=== PATIENT | male | born 1960 | race Caucasian/White ===

== ENCOUNTER 2016-10-13 10:35 | Inpatient (IN) | payer OTHER ==
[~2016-10-13] VITALS: Ht 177.8 cm; Wt 96.8 kg
[2016-10-13 12:31] LABS: BUN/CREATININE RATIO 14 (0-10)
[2016-10-13 12:37] LABS: HEMOGLOBIN 13.5 gm/dl (14.0-17.5); RED BLOOD COUNT 4.33 M/UL (4.20-5.50); WHITE BLOOD COUNT 25.9 K/UL (4.5-11.0)
[2016-10-13] MEDS ORDERED: LIPITOR TAB 2020 MG PO (20:42)
[2016-10-13] MEDS ORDERED: ASPIRIN325 MG PO (20:42)
[2016-10-13] MEDS ORDERED: ACCUPRIL 10 MG10 MG PO (20:44)
[2016-10-13] MEDS ORDERED: ISOSORBIDE MONO30 MG PO (20:44)
[2016-10-13] MEDS ORDERED: METOPROLOL TART25 MG PO (20:44)
[2016-10-14 04:44] LABS: HEMOGLOBIN 12.5 gm/dl (14.0-17.5); RED BLOOD COUNT 3.97 M/UL (4.20-5.50)
[2016-10-14 05:01] LABS: BUN/CREATININE RATIO 10 (0-10)
[2016-10-15 04:48] LABS: HEMOGLOBIN 12.1 gm/dl (14.0-17.5); RED BLOOD COUNT 3.95 M/UL (4.20-5.50)
[2016-10-15 04:49] LABS: WHITE BLOOD COUNT 13.6 K/UL (4.5-11.0)
[2016-10-15 05:12] LABS: BUN/CREATININE RATIO 10 (0-10)
[2016-10-16 05:49] LABS: HEMOGLOBIN 12.4 gm/dl (14.0-17.5); RED BLOOD COUNT 3.98 M/UL (4.20-5.50); WHITE BLOOD COUNT 12.5 K/UL (4.5-11.0)
[2016-10-16 06:02] LABS: BUN/CREATININE RATIO 13 (0-10)
[2016-10-17] MEDS ORDERED: HABITROL 21 MG P1 EA TD (11:26)
[2016-10-17] MEDS ORDERED: LORCET PLUS 7.1 EACH PO (11:28)
[2016-10-17] MEDS ORDERED: VIBRAMYCIN100 MG PO (11:29)
== END 2016-10-17 13:45 | disposition home or self-care (01) | DRG 854 ==
LOC: ER1 10:35 → ZEROF 13:15 → MED SURG 4 14:24
PROVIDERS: Emergency Medicine; Physician Assistant; Surgery; ADMIT Internal Medicine
PROC: 0J990ZZ Drainage of Buttock Subcutaneous Tissue and Fascia, Open Approach (ICD-10-PCS; principal; 2016-10-14 13:15)
DX: A41.9 Sepsis, unspecified organism (principal); L02.31 Cutaneous abscess of buttock; E87.2 Acidosis; E87.1 Hypo-osmolality and hyponatremia; I10 Essential (primary) hypertension; E78.5 Hyperlipidemia, unspecified; F17.210 Nicotine dependence, cigarettes, uncomplicated; Z86.14 Personal history of Methicillin resistant Staphylococcus aureus infection; Z79.82 Long term (current) use of aspirin; Z88.6 Allergy status to analgesic agent; Z79.899 Other long term (current) drug therapy; Z63.5 Disruption of family by separation and divorce; Z82.49 Family history of ischemic heart disease and other diseases of the circulatory system; Z80.3 Family history of malignant neoplasm of breast; Z88.5 Allergy status to narcotic agent; Z88.8 Allergy status to other drugs, medicaments and biological substances
CPT/HCPCS: 10061; 36415; 80048; 80053; 80202; 83605; 83735; 85025; 85027; 87040; 87070; 87205; 90471; 90715; 93005; 96361; 96374; 96375; 99283; 99284; J1335; J2250; J2270; J2405; J3010; J3370; J7030; J7050; J7070; J7120

== ENCOUNTER → 2016-10-18 | Outpatient (CLI) | payer OTHER ==
[~2016-10-18] MED LIST: ACCUPRIL 10 MG10 MG PO; ASPIRIN325 MG PO; HABITROL 21 MG P1 EA TD; ISOSORBIDE MONO30 MG PO; LIPITOR TAB 2020 MG PO; LORCET PLUS 7.1 EACH PO; METOPROLOL TART25 MG PO; VIBRAMYCIN100 MG PO
== END ==
LOC: OPSV 14:35
DX: L02.31 Cutaneous abscess of buttock (principal)
CPT/HCPCS: G0463

== ENCOUNTER → 2016-10-19 | Outpatient (CLI) | payer OTHER | LOC: OPSV 14:29 | DX: L02.31 Cutaneous abscess of buttock (principal) | CPT/HCPCS: G0463 ==

== ENCOUNTER → 2016-10-20 | Outpatient (CLI) | payer OTHER | LOC: OPSV 14:18 | DX: L02.31 Cutaneous abscess of buttock (principal) | CPT/HCPCS: G0463 ==

== ENCOUNTER → 2016-10-21 | Outpatient (CLI) | payer OTHER | LOC: OPSV 14:04 | DX: L02.31 Cutaneous abscess of buttock (principal) | CPT/HCPCS: G0463 ==

== ENCOUNTER → 2016-10-22 | Outpatient (CLI) | payer OTHER | LOC: OPSV 14:11 | DX: L02.31 Cutaneous abscess of buttock (principal) | CPT/HCPCS: G0463 ==

== ENCOUNTER → 2016-10-23 | Outpatient (CLI) | payer OTHER | LOC: OPSV 08:30 | DX: L02.31 Cutaneous abscess of buttock (principal) | CPT/HCPCS: G0463 ==

== ENCOUNTER → 2016-10-24 | Outpatient (CLI) | payer OTHER | LOC: OPSV 08:44 | DX: L02.31 Cutaneous abscess of buttock (principal) | CPT/HCPCS: G0463 ==

== ENCOUNTER → 2016-10-25 | Outpatient (CLI) | payer OTHER | LOC: OPSV 09:09 | DX: L02.31 Cutaneous abscess of buttock (principal) | CPT/HCPCS: G0463 ==

== ENCOUNTER → 2016-10-27 | Outpatient (CLI) | payer OTHER | LOC: OPSV 13:54 | DX: L02.31 Cutaneous abscess of buttock (principal) | CPT/HCPCS: G0463 ==

== ENCOUNTER → 2016-10-28 | Outpatient (CLI) | payer OTHER | LOC: OPSV 13:54 | DX: L02.31 Cutaneous abscess of buttock (principal) | CPT/HCPCS: G0463 ==

== ENCOUNTER → 2016-10-29 | Outpatient (CLI) | payer OTHER | LOC: OPSV 13:57 | DX: L02.31 Cutaneous abscess of buttock (principal) | CPT/HCPCS: G0463 ==

== ENCOUNTER → 2016-10-30 | Outpatient (CLI) | payer OTHER | LOC: OPSV 09:00 | DX: L02.31 Cutaneous abscess of buttock (principal) | CPT/HCPCS: G0463 ==

== ENCOUNTER → 2016-10-31 | Outpatient (CLI) | payer OTHER | LOC: OPSV 08:42 | DX: L02.31 Cutaneous abscess of buttock (principal) | CPT/HCPCS: G0463 ==

== ENCOUNTER → 2016-11-01 | Outpatient (CLI) | payer OTHER | LOC: OPSV 14:17 | DX: L02.31 Cutaneous abscess of buttock (principal) | CPT/HCPCS: G0463 ==

== ENCOUNTER → 2016-11-02 | Outpatient (CLI) | payer OTHER | LOC: OPSV 12:59 | DX: L02.31 Cutaneous abscess of buttock (principal) | CPT/HCPCS: G0463 ==

== ENCOUNTER → 2016-11-03 | Outpatient (CLI) | payer OTHER | LOC: OPSV 13:59 | DX: L02.31 Cutaneous abscess of buttock (principal) | CPT/HCPCS: G0463 ==

== ENCOUNTER → 2016-11-04 | Outpatient (CLI) | payer OTHER | LOC: OPSV 13:46 | DX: L02.31 Cutaneous abscess of buttock (principal) | CPT/HCPCS: G0463 ==

== ENCOUNTER → 2016-11-05 | Outpatient (CLI) | payer OTHER | LOC: OPSV 13:49 | DX: L02.31 Cutaneous abscess of buttock (principal) | CPT/HCPCS: G0463 ==

== ENCOUNTER → 2016-11-06 | Outpatient (CLI) | payer OTHER | LOC: OPSV 08:30 | DX: L02.31 Cutaneous abscess of buttock (principal) | CPT/HCPCS: G0463 ==

== ENCOUNTER → 2016-11-07 | Outpatient (CLI) | payer OTHER | LOC: OPSV 07:36 | DX: L02.31 Cutaneous abscess of buttock (principal) | CPT/HCPCS: G0463 ==

== ENCOUNTER → 2016-11-08 | Outpatient (CLI) | payer OTHER | LOC: OPSV 14:00 | DX: L02.31 Cutaneous abscess of buttock (principal) | CPT/HCPCS: G0463 ==

== ENCOUNTER → 2016-11-09 | Outpatient (CLI) | payer OTHER | LOC: OPSV 13:58 | DX: L02.31 Cutaneous abscess of buttock (principal) | CPT/HCPCS: G0463 ==

== ENCOUNTER 2017-03-25 10:19 | Emergency (ER) | payer OTHER | END 2017-03-25 12:30 | disposition home or self-care (01) | LOC: ER1 10:19 | DX: Z48.817 Encounter for surgical aftercare following surgery on the skin and subcutaneous tissue (principal) | CPT/HCPCS: 99282 ==

== ENCOUNTER → 2022-02-04 | Outpatient (CLI) | payer OTHER | LOC: KOH-I 15:05 | DX: M54.2 Cervicalgia (principal); M25.511 Pain in right shoulder | CPT/HCPCS: 72040; 73030 ==